=== PATIENT | male | born 1965 | race Caucasian/White ===

== ENCOUNTER 2019-02-25 14:32 | Emergency (ER) | payer BC ==
[~2019-02-25] VITALS: Ht 182.9 cm; Wt 134.1 kg
[~2019-02-25 14:32] MED LIST: ESCITALOPRAM10 MG PO; FENOFIBRATE145 MG PO; GLUCOPHAGE PO; LEVOTHYROXINE0.15 MG PO; OMEPRAZOLE40 MG PO; SIMVASTATIN40 M1 PO; VALSARTAN AND H1 TA3 PO
[2019-02-25] MEDS ORDERED: MAPAP500 M2 PO (15:28)
[2019-02-25 15:37] LABS: EOS % 0.9 % (0.0-4.0); HEMATOCRIT 40.2 % (42.0-52.0); HEMOGLOBIN 13.5 g/dL (13.5-18.0); LYMPH# 1.5 (1.50-4.00); MEAN CELL VOLUME 94 fl (78-100); MEAN CORPUSCULAR HEMOGLOBIN 32 pg (27-31); MEAN CORPUSCULAR HGB CONC 34 g/dL (33-37); MEAN PLATELET VOLUME 10.5 fl (7.4-10.4); MONO # 0.4 (0.20-0.80); NEU # 2.5 (1.40-6.50); PLATELET COUNT 186 K/mm3 (130-400); RED BLOOD COUNT 4.26 M/mm3 (4.20-5.60); RED CELL DISTRIBUTION WIDTH 12.7 % (11.5-14.5); WHITE BLOOD COUNT 4.4 K/mm3 (4.8-10.8)
[2019-02-25 15:44] LABS: ALBUMIN 4.1 g/dL (3.5-5.0)
[2019-02-25 15:45] LABS: SODIUM 144 mmol/L (136-145)
[2019-02-25 15:46] LABS: CALCIUM 9.4 mg/dL (8.3-10.5)
[2019-02-25 15:47] LABS: GLUCOSE 114 mg/dL (75-110); TOTAL PROTEIN 6.8 g/dL (6.4-8.3)
[2019-02-25 15:48] LABS: CARBON DIOXIDE 24 mmol/L (22-29)
[2019-02-25 15:49] LABS: TOTAL BILIRUBIN 0.3 mg/dL (0.2-1.2)
[2019-02-25 15:52] LABS: AST-SGOT 28 U/L (5-34)
[2019-02-25 15:53] LABS: ALT/SGPT 50 U/L (0-55)
[2019-02-25 15:54] LABS: LIPASE 36 U/L (8-78)
[2019-02-25 16:03] LABS: TROPONIN-I < 0.03 ng/mL (<0.030)
[2019-02-25] MEDS ORDERED: NORCO 325 MG-51 TA1 PO (17:04)
[2019-02-25 17:19] VITALS: BP 132/68
== END 2019-02-25 17:20 | disposition home or self-care (01) ==
LOC: ED 14:32
PROVIDERS: Family Medicine
DX: R10.11 Right upper quadrant pain (principal); I10 Essential (primary) hypertension; E78.5 Hyperlipidemia, unspecified; E11.9 Type 2 diabetes mellitus without complications; K21.9 Gastro-esophageal reflux disease without esophagitis; E66.9 Obesity, unspecified; F17.210 Nicotine dependence, cigarettes, uncomplicated; Z98.890 Other specified postprocedural states; Z79.84 Long term (current) use of oral hypoglycemic drugs

== ENCOUNTER → 2019-03-01 | Outpatient (CLI) | payer BC ==
[2019-02-25 17:19] VITALS: BP 132/68
[~2019-03-01] MED LIST changes: +MAPAP500 M2 PO; +NORCO 325 MG-51 TA1 PO
== END ==
LOC: RAD 08:45
DX: K76.0 Fatty (change of) liver, not elsewhere classified (principal)

== ENCOUNTER 2020-11-30 15:00 | Emergency (ER) | payer BC ==
[2020-11-30] MEDS ORDERED: ZOCOR 80MG80 MG PO (15:27)
[2020-11-30] MEDS ORDERED: ASPIRIN E.C. 8181 MG (15:50)
[2020-11-30] MEDS ORDERED: NORVASC 10MG10 MG PO (15:50)
[2020-11-30] MEDS ORDERED: FLONASE ALLERG9.9 ML NS (15:51)
[2020-11-30 16:05] LABS: HEMATOCRIT 45.5 % (42.0-52.0); HEMOGLOBIN 15.1 g/dL (13.5-18.0); MEAN CELL VOLUME 95 fl (78-100); MEAN CORPUSCULAR HEMOGLOBIN 32 pg (27-31); MEAN CORPUSCULAR HGB CONC 33 g/dL (33-37); MEAN PLATELET VOLUME 10.3 fl (7.4-10.4); PLATELET COUNT 156 K/mm3 (130-400); RED CELL DISTRIBUTION WIDTH 12.6 % (11.5-14.5); WHITE BLOOD COUNT 4.6 K/mm3 (4.8-10.8)
[2020-11-30 16:16] LABS: LYMPHOCYTE 26 % (20-51); MONOCYTE 17 % (3-10); NEUTROPHILS 56 % (42-75)
[2020-11-30] MEDS ORDERED: DEXAMETHASONE2 M1 PO (17:09)
[2020-11-30 17:31] VITALS: BP 147/81
== END 2020-11-30 17:00 | disposition home or self-care (01) ==
LOC: ED 15:00
PROVIDERS: Family Medicine
DX: J06.9 Acute upper respiratory infection, unspecified (principal); J30.2 Other seasonal allergic rhinitis; H65.03 Acute serous otitis media, bilateral; E11.9 Type 2 diabetes mellitus without complications; I10 Essential (primary) hypertension; K21.9 Gastro-esophageal reflux disease without esophagitis; E78.5 Hyperlipidemia, unspecified; Z20.822 Contact with and (suspected) exposure to COVID-19; Z79.84 Long term (current) use of oral hypoglycemic drugs; Z79.82 Long term (current) use of aspirin; Z79.890 Hormone replacement therapy; Z79.899 Other long term (current) drug therapy